=== PATIENT | female | born 1960 | race Caucasian/White ===

== ENCOUNTER → 2016-12-15 | Outpatient (CLI) | payer BC ==
[2016-12-15 13:30] LABS: URINE APPEARANCE CLEAR (CLEAR); URINE BILIRUBIN NEG (NEG); URINE COLOR YELLOW; URINE EPITHELIAL CELL AUTO 0-5 /lpf (0-5); URINE NITRITE NEG (NEG); URINE PH 5.5 (4.5-7.5); URINE SPECIFIC GRAVITY 1.005 (1.000-1.030); UROBILINOGEN NEG (NEG); ZZUR CULT IF INDIC CLEAN CATCH NO
[2016-12-15 13:32] LABS: MANUAL MICROSCOPIC REQUIRED? NO; REVIEW REQ? NO
[2016-12-15 13:47] LABS: ALT/SGPT 18 U/L (12-78); AMYLASE 44 U/L (25-115); BLOOD UREA NITROGEN 17 mg/dl (7-18); BUN/CREATININE RATIO 17.2 (10-20); CALCIUM 9.4 mg/dl (8.5-10.1); CARBON DIOXIDE 27 mmol/L (21-32); CHLORIDE 103 mmol/L (98-107); GLUCOSE 90 mg/dl (70-99); POTASSIUM 4.2 mmol/L (3.5-5.1); SODIUM 136 mmol/L (136-145)
[2016-12-15 13:58] LABS: ALKALINE PHOSPHATASE 78 U/L (45-117); AST/SGOT 14 U/L (15-37)
== END | disposition home or self-care (01) ==
LOC: C.LABMFLN 10:55
PROVIDERS: ATTEND Family Medicine
DX: L74.519 Primary focal hyperhidrosis, unspecified (principal); R30.0 Dysuria; R10.811 Right upper quadrant abdominal tenderness

== ENCOUNTER → 2016-12-29 | Outpatient (CLI) | payer BC | END | disposition home or self-care (01) | LOC: C.LABMFLN 11:01 | PROVIDERS: ATTEND Family Medicine | DX: Z11.59 Encounter for screening for other viral diseases (principal) ==

== ENCOUNTER 2017-09-06 05:34 | Observation (INO) | payer BC ==
[2017-08-24 10:42] VITALS: BMI 26.0
--- NOTE | 2017-08-24 11:24 | PAT Medication Instructions ---
Service Date Aug 24, 2017. Current Home Medication List Black Cohosh (Cimicifuga Racem (Black Cohosh), 1 CAP PO QAM Calcium/Vitamin D (Os-Pepe 500 Plus D), 1 TAB PO QAM Famotidine (Pepcid), 20 MG PO HS Lorazepam (Ativan), 1 MG PO QAM Meclizine Hcl (Meclizine Hcl), 1 TAB PO BID Meloxicam (Mobic), 15 MG PO QAM Multiple Vitamin (Multi Vitamin), 1 TAB PO QAM Oxycodone Hcl (Oxycontin), 20 MG PO Q12 Sertraline (Zoloft), 50 MG PO QAM Tiotropium [place] (Spiriva Handihaler), 1 CAP INH QAM Medication Instructions For Your Scheduled Surgery - Hold the following medications 2 weeks prior to surgery: Black Cohosh (Cimicifuga Racem (Black Cohosh), 1 CAP PO QAM - Contact your surgeon for instructions for : Meloxicam (Mobic), 15 MG PO QAM (OK PER ANESTHESIA) - Hold the following medications the morning of surgery: Multiple Vitamin (Multi Vitamin), 1 TAB PO QAM Calcium/Vitamin D (Os-Pepe 500 Plus D), 1 TAB PO QAM - Take the following medications the morning of surgery with a sip of water: Oxycodone Hcl (Oxycontin), 20 MG PO Q12 (if needed, up to four hours before surgery) Tiotropium [place] (Spiriva Handihaler), 1 CAP INH QAM Sertraline (Zoloft), 50 MG PO QAM Meclizine Hcl (Meclizine Hcl), 1 TAB PO BID Lorazepam (Ativan), 1 MG PO QAM - Take the following medications as scheduled the night before surgery: Meclizine Hcl (Meclizine Hcl), 1 TAB PO BID Oxycodone Hcl (Oxycontin), 20 MG PO Q12 Famotidine (Pepcid), 20 MG PO HS If you have any questions please call us at [phone] or [phone] or [phone]
[2017-08-24 12:06] LABS: BASO % 0.9 %; BASO ABS # 0.05 K/uL (0-0.2); COMPLETE YES; EOS % 2.3 %; HEMATOCRIT 39.8 % (37-47); IG% 0.2 %; LYMPH % 26.8 %; LYMPH ABS # 1.53 K/uL (1.2-3.4); MEAN CELL VOLUME 94.3 fL (80-100); MEAN CORPUSCULAR HEMOGLOBIN 32.2 pg (25-34); MEAN CORPUSCULAR HGB CONC 34.2 g/dl (32-36); MONO % 7.4 %; NEUT % 62.4 %; PLATELET COUNT 168 K/uL (130-400); RED BLOOD COUNT 4.22 M/uL (4.2-5.4); WHITE BLOOD COUNT 5.71 K/uL (4.8-10.8)
[2017-08-24 12:07] LABS: URINE APPEARANCE CLEAR (CLEAR); URINE BILIRUBIN NEG (NEG); URINE COLOR YELLOW; URINE NITRITE NEG (NEG); URINE SPECIFIC GRAVITY 1.017 (1.000-1.030); UROBILINOGEN NEG (NEG)
--- NOTE | 2017-08-24 12:08 | DIAGNOSTIC IMAGING REPORT ---
CHEST PREADMISSION(PA/LAT) CLINICAL HISTORY: PAT preoperative evaluation COMPARISON STUDY: No previous studies for comparison. FINDINGS: The bones soft tissues and hemidiaphragms are normal. The cardiomediastinal silhouette is normal. The lungs are clear. The pulmonary vasculature is normal. IMPRESSION: Negative chest. The above report was generated using voice recognition software. It may contain grammatical, syntax or spelling errors. Electronically signed by: Talat Foote M.D. 08/24/2017 12:07 PM Dictated Date/Time: 08/24/2017 12:07 PM
[2017-08-24 12:09] LABS: MANUAL MICROSCOPIC REQUIRED? NO; REVIEW REQ? NO
[2017-08-24 12:18] LABS: PARTIAL THROMBOPLASTIN RATIO 1.1; PROTHROMBIN TIME (PATIENT) 10.6 SECONDS (9.0-12.0)
[2017-08-24 14:30] LABS: BUN/CREATININE RATIO 22.2 (10-20); CALCIUM 9.5 mg/dl (8.5-10.1); CREATININE 0.92 mg/dl (0.60-1.20); POTASSIUM 4.6 mmol/L (3.5-5.1)
--- NOTE | 2017-09-05 14:57 | HISTORY & PHYSICAL EXAMINATION ---
DATE OF ADMISSION: 09/06/2017 CHIEF COMPLAINT AND HISTORY OF PRESENT ILLNESS: She is being preoped for a posterior lumbar interbody fusion L4-5. Back and lower extremity difficulty, paresthesias months in duration and even years in duration failed to improve with nonoperative measures. She is miserable and was optimistic for some remedy. Through careful evaluation, we determined that she has a spondylolisthesis, lumbar spine L4-5 and she is scheduled for a posterior lumbar interbody fusion. PAST MEDICAL HISTORY: Parkinson's, stomach ulcer, asthma, difficulty with anesthesia. PAST SURGICAL HISTORY: Tonsil and adenoidectomy, tubal ligation, and hysterectomy. ALLERGIES: CODEINE, MORPHINE. CURRENT MEDICATIONS: Meloxicam, Ativan, oxycodone. SOCIAL HISTORY: No alcohol, tobacco. Two grown children. Moderately active, retired, . ADDITIONAL MEDICATIONS: Zoloft, vitamins, calcium. REVIEW OF SYSTEMS: She admits to some fatigue but no fever, sweats. Admits to sinus difficulties. No chest pain, palpitations or arrhythmias. Positive for asthma. No nausea, vomiting, urgency, frequency, depression. She does have numbness and tingling, tremor and dizziness. PHYSICAL EXAMINATION: GENERAL: She is 5 feet 5 inches and 160 pounds, in moderate distress, alert, oriented, mentation normal, appropriately dressed. VITAL SIGNS: Blood pressure 130/80, pulse 80. HEENT: Pupils react to light and accommodation. Ear, nose and throat clear. CARDIAC: Normal S1, S2, no S3. LUNGS: Clear to auscultation. No rales, rhonchi or wheezing. ABDOMEN: Soft, nontender. IMAGING DATA: Images demonstrate spondylolisthesis. ASSESSMENT: Spondylolisthesis and stenosis, L4-5. PLAN: Includes a posterior lumbar interbody fusion, L4-5.
[2017-09-06] VITALS (9 sets, daily range): BP systolic 95–112; BP diastolic 58–72; PULSE 59–87; TEMP 36.4–37; O2SAT 95–100; Ht 165.1 cm; Wt 72.4 kg
[~2017-09-06] VITALS: Ht 165.1 cm; Wt 72.4 kg
[~2017-09-06 05:34] MED LIST: ATV/1 PO; BLAC540C3 PO; CALC500C70 PO; FAMO20TA11 PO; MECL1TAB40 PO; MELO7.5T5 PO; MULT-1027 PO; OXYC20TA50 PO; SERT50TA PO; SPRIN/30 INH
[2017-09-06] MEDS ORDERED: CEFAZOLIN 2000MG IV PUSH 10 ML IV SCH (06:00)
[2017-09-06] MEDS ORDERED: LACTATED RINGER'S 1000ML 1,000 ML IV SCH (06:00)
[2017-09-06] MEDS ORDERED: SCOPOLAMINE 1.5 MG TDSY TD SCH (06:00)
[2017-09-06] MEDS ORDERED: NSS 1000ML IV SCH (06:00)
[2017-09-06] MEDS ORDERED: GLYCOPYRROLATE INJ 0.2 MG/ML VIAL ONE (06:41)
[2017-09-06] MEDS ORDERED: FENTANYL CITRATE INJ 50 MCG/1 ML 2 ML VIAL ONE ×2 (06:41)
[2017-09-06] MEDS ORDERED: MIDAZOLAM HCL 1 MG/ML 2ML VIAL ONE (06:41)
[2017-09-06] MEDS ORDERED: ONDANSETRON INJ 2 MG/ML 2 ML VIAL ONE ×2 (06:41→08:43)
[2017-09-06] MEDS ORDERED: NEOSTIGMINE METHYLSULFATE 5 MG/5 ML SYR ONE (06:41)
[2017-09-06] MEDS ORDERED: LIDOCAINE HCL 2% 2 ML VIAL (20MG/ML) ONE (06:41)
[2017-09-06] MEDS ORDERED: PROPOFOL IV EMULSION 10 MG/ML 20 ML VIAL IV ONE (06:41)
[2017-09-06] MEDS ORDERED: DEXAMETHASONE SOD INJ 4 MG/ML VIAL ONE (06:41)
[2017-09-06] MEDS ORDERED: GELATIN SPONGE SZ 100 ONE ×2 (07:02→09:25)
[2017-09-06] MEDS ORDERED: THROMBIN FOR SOLN 20000 UNIT KIT ONE (07:02)
[2017-09-06] MEDS ORDERED: BACITRACIN 50000 UNIT VIAL ONE (07:03)
[2017-09-06] MEDS ORDERED: VANCOMYCIN HCL 1000MG/20ML VIAL ONE (07:03)
[2017-09-06] MEDS ORDERED: EpINEphrine INJ 1MG/ML AMP 1 MG/ML AMP ONE (07:04)
[2017-09-06] MEDS ORDERED: BUPIVACAINE 0.5 % 5 MG/1 ML MPF 30ML VIAL ONE ×2 (07:04→07:30)
--- NOTE | 2017-09-06 07:13 | History & Physical Bridge Note ---
H&P Re-Evaluation Bridge Note: I have examined the patient, reviewed the History & Physical and in the interval since the performance of the History & Physical I have noted the following changes of clinical significance: No changes noted
[2017-09-06] MEDS ORDERED: ATROPINE SULFATE 0.1 MG/ML 5ML SYR IV PRN (08:15)
[2017-09-06] MEDS ORDERED: ONDANSETRON INJ 2 MG/ML 2 ML VIAL IV PRN ×2 (08:15→10:00)
[2017-09-06] MEDS ORDERED: EpHEDrine SULFATE INJ 50 MG/ML AMP IV PRN (08:15)
[2017-09-06] MEDS ORDERED: PHENYLEPHRINE 100MCG/ML 5ML SYR IV PRN (08:15)
[2017-09-06] MEDS ORDERED: EpHEDrine SULFATE 50MG/5ML SYR ONE (08:34)
[2017-09-06] MEDS ORDERED: ROCURONIUM BROMIDE 10 MG/ML 5 ML VIAL IV ONE ×2 (08:34)
[2017-09-06] MEDS ORDERED: GELATIN SPONGE OP 25X50MM 1 EA SPNG ONE (09:24)
[2017-09-06] MEDS ORDERED: SODIUM CHLORIDE 0.9% 1000ML 1,000 ML IV SCH (09:54)
--- NOTE | 2017-09-06 09:56 | [facility] Post Operative Brief Note ---
Immediate Operative Summary Operative Date Sep 06, 2017. Pre-Operative Diagnosis Spondylolisthesis and stenosis L4-L5 Post-Operative Diagnosis Same Procedure(s) Performed L4-L5 Decompression Posterior Lumbar Interbody Fusion Surgeon Dr Funez Mortgage Loan Underwriter Surgeon(s) Vern Jacobo PA-C Estimated Blood Loss 200ML Findings spondy Specimens NONE Complication(s) None Disposition Recovery Room / PACU
[2017-09-06] MEDS ORDERED: METOCLOPRAMIDE HCL INJ 5 MG/ML 2 ML VIAL IV PRN (10:00)
[2017-09-06] MEDS ORDERED: PROMETHAZINE HCL INJ 12.5 MG in SODIUM CHLORIDE 0.9% 50ML 50 ML IV PRN (10:00)
[2017-09-06] MEDS ORDERED: LORAZEPAM INJ 1 MG in SYRINGE 0.5 ML IV PRN (10:00)
[2017-09-06] MEDS ORDERED: MAGNESIUM HYDROXIDE SUSP 30 ML UDC PO PRN (10:00)
[2017-09-06] MEDS ORDERED: ACETAMINOPHEN 325 MG TAB PO PRN (10:00)
[2017-09-06] MEDS ORDERED: HYDROmorphone HCL 0.5MG/ML 50 ML CASSETTE IV PRN (10:00)
[2017-09-06] MEDS ORDERED: NALOXONE HCL 0.4 MG/1 ML VIAL/CARP IV PRN (10:00)
[2017-09-06] MEDS: HYDROmorphone INJ 2 MG/ML SYR/VIAL IV PRN ×4 (10:05→10:25)
[2017-09-06] MEDS ORDERED: HYDROmorphone HCL 0.5MG/ML 50 ML CASSETTE ONE (10:12)
--- NOTE | 2017-09-06 10:19 | OPERATIVE REPORT ---
DATE OF OPERATION: 09/06/2017 PREOPERATIVE DIAGNOSIS: Spondylolisthesis, stenosis L4-L5 lumbar spine. POSTOPERATIVE DIAGNOSIS: Same. PROCEDURE: Decompression laminectomy L4-L5, posterior lumbar interbody fusion L4-L5. COMPLICATIONS: Zero. IMPLANTS USED: Lvmama. SURGEON: Corey Funez DO. MATERIALS HANDLING COORDINATOR: Vern Jacobo PA-C. ESTIMATED BLOOD LOSS: Less than 200. DESCRIPTION OF PROCEDURE: The patient was taken to the operating room, a general intubated anesthetic provided to the patient, placed prone, scrubbed, prepped and draped sterile. We made a skin incision roughly from 3 to the sacrum dissecting the soft tissue in the same plane, putting in a deep self-retaining retractor. We provided and performed the discectomy and laminectomy portion of procedure getting the nerve roots free, which would mainly be L5 bilaterally and some of L4. I was free with the amount of decompression of the nerve roots. We then safely got pedicle screws into the vertebrae of L4 and L5 bilaterally. Our reduction technique was a complete discectomy at the L4-L5. We then did a posterior lumbar interbody fusion L4-L5. The implants used were by [employer]. We got nice plane anteriorly. We compressed over the interspaces as well. I was pleased with the decompression. We then irrigated thoroughly, bone grafted out over the transverse processes, closed fascia to fascia over vancomycin powder and Hemovac drain, 2-0 in the subcuticular layer, 3-0 nylon on the skin, sterile dressing applied. The patient returned to PACU stable. There were no apparent interoperative complications. I attest to the content of the Intraoperative Record and any orders documented therein. Any exception s are noted below.
[2017-09-06] MEDS ORDERED: NURSING VERBAL MED ORDER ONE (10:30)
--- NOTE | 2017-09-06 10:31 | DIAGNOSTIC IMAGING REPORT ---
SPINE ONE VIEW, ANY LEVEL CLINICAL HISTORY: 56 years-old Female presenting with L4-L5 POSTERIOR LUMBAR INTERBODY FUSION. TECHNIQUE: 1 fluoroscopic spot image(s) obtained as part of an intraoperative procedure. COMPARISON: MR from 05/14/2017. FINDINGS/IMPRESSION: Interval bilateral transpedicular screw and chip fixation of L4-5 with interbody spacer. Grossly normal anatomic alignment on lateral view. Please see surgical report for further details. Fluoroscopy dosage (mGy): Not available. Fluoroscopy time: 4 seconds. Number of fluoroscopic spot images: 1. Electronically signed by: Everette Ortez M.D. 09/06/2017 10:30 AM Dictated Date/Time: 09/06/2017 10:29 AM
[2017-09-06 11:20] LABS: HEMATOCRIT 36.8 % (37-47)
--- NOTE | 2017-09-06 11:43 | Anesthesiology Progress Note ---
Anesthesia Post Op Note Date & Time Sep 06, 2017 at 11:42 Vital Signs Pain Intensity: 3 Vital Signs Past 12 Hours Date Time Temp Pulse Resp B/P (MAP) Pulse Ox O2 Delivery O2 Flow Rate FiO2 09/06/17 11:10 83 18 09/06/17 11:10 83 18 97 09/06/17 11:05 78 12 09/06/17 11:05 77 12 96/62 100 09/06/17 11:01 96/57 09/06/17 11:00 77 14 09/06/17 11:00 79 14 97 09/06/17 10:55 78 10 94/58 99 09/06/17 10:55 77 10 09/06/17 10:51 95/57 09/06/17 10:50 75 10 09/06/17 10:50 74 10 99 09/06/17 10:49 36.5 09/06/17 10:45 81 09/06/17 10:45 81 16 88/53 98 09/06/17 10:40 83 16 106/60 97 09/06/17 10:40 82 16 09/06/17 10:36 90/51 09/06/17 10:35 77 12 98 09/06/17 10:35 77 12 09/06/17 10:30 87 14 105/62 98 09/06/17 10:30 87 09/06/17 10:26 99/68 09/06/17 10:25 92 16 97 09/06/17 10:25 92 16 09/06/17 10:22 Nasal Cannula 4 09/06/17 10:20 79 98/60 99 09/06/17 10:20 79 09/06/17 10:15 86 16 09/06/17 10:15 86 16 94/61 100 09/06/17 10:10 87 9 09/06/17 10:10 87 9 103/64 100 09/06/17 10:05 90 11 103/59 98 09/06/17 10:05 91 11 09/06/17 10:02 97/61 09/06/17 09:55 36.5 85 16 123/64 99 Mask 10 09/06/17 06:09 36.7 59 18 107/58 (74) 99 Room Air Notes Mental Status: alert / awake / arousable, participated in evaluation Pt Amnestic to Procedure: Yes Nausea / Vomiting: adequately controlled Pain: adequately controlled Airway Patency, RR, SpO2: stable & adequate BP & HR: stable & adequate Hydration State: stable & adequate Anesthetic Complications: no major complications apparent
[2017-09-06] MEDS: SODIUM CHLORIDE 0.9% 1000ML 1,000 ML IV SCH (13:35)
[2017-09-06] MEDS: DEXAMETHASONE INJ 10 MG in SYRINGE 0 ML IV SCH ×2 (13:36→21:45)
[2017-09-06] MEDS: CHECK SCOPOLAMINE PATCH PLACEMENT SCH ×2 (15:48→23:27)
[2017-09-06] MEDS: CEFAZOLIN IV 1,000 MG in SYRINGE 0 ML IV SCH ×2 (15:49→23:27)
[2017-09-06] MEDS: MECLIZINE HCL 12.5 MG TAB PO SCH (20:40)
[2017-09-06] MEDS: FAMOTIDINE 20 MG TAB PO SCH (20:40)
[2017-09-07] MEDS: SODIUM CHLORIDE 0.9% 1000ML 1,000 ML IV SCH (02:09)
[2017-09-07 04:07] VITALS: BP 98/60; PULSE 72; TEMP 37.1; O2SAT 92
[2017-09-07] MEDS: DEXAMETHASONE INJ 10 MG in SYRINGE 0 ML IV SCH ×4 (05:59→21:42)
[2017-09-07] MEDS ORDERED: DC PCA SCH (06:00)
[2017-09-07] MEDS ORDERED: BISACODYL 10 MG SUPP PR PRN (06:00)
[2017-09-07] MEDS ORDERED: BISACODYL 5 MG TABEC PO PRN (06:00)
[2017-09-07] MEDS ORDERED: NURSING VERBAL MED ORDER ONE (07:15)
[2017-09-07 07:50] VITALS: BP 94/62; PULSE 68; TEMP 37.1; O2SAT 96
[2017-09-07] MEDS: CEFAZOLIN IV 1,000 MG in SYRINGE 0 ML IV SCH (07:56)
[2017-09-07] MEDS: OXYCODONE/ACETAMINOPHEN 5-325 TAB PO PRN ×4 (07:57→23:12)
[2017-09-07] MEDS: CHECK SCOPOLAMINE PATCH PLACEMENT SCH ×3 (07:58→23:13)
[2017-09-07] MEDS ORDERED: OXYCODONE/ACETAMINOPHEN 5-325 TAB PO PRN (08:00)
[2017-09-07] MEDS ORDERED: HYDROmorphone INJ 1 MG/ML SYR IV PRN (08:00)
[2017-09-07] MEDS ORDERED: HYDROmorphone INJ 2 MG/ML SYR/VIAL IV PRN (08:00)
[2017-09-07] MEDS: TIOTROPIUM BROMIDE 5 PUFF/90 MCG INH INH SCH (08:06)
[2017-09-07] MEDS: MECLIZINE HCL 12.5 MG TAB PO SCH ×2 (08:07→20:18)
[2017-09-07] MEDS: CALCIUM 600MG + VIT D 400 IU TAB PO SCH (08:08)
[2017-09-07] MEDS: MELOXICAM 7.5 MG TAB PO SCH (08:09)
[2017-09-07] MEDS: SERTRALINE HCL 50 MG TAB PO SCH (08:09)
[2017-09-07] MEDS: POLYETHYLENE (MIRALAX) 17 GM PACK PO SCH (08:09)
[2017-09-07] MEDS: MULTIVITAMIN TAB PO SCH (08:12)
--- NOTE | 2017-09-07 08:14 | ORTHOPEDICS PROGRESS NOTE ---
DATE: 09/07/2017 DATE: 09/07/2017 SUBJECTIVE: Moderate complaints of pain, no gross neurological complaints. Alert, oriented. No chest pain, no shortness of breath, no abdominal pain. OBJECTIVE: Vital signs stable including pressure and pulse. Laboratory work pending. IMPRESSION: Status post reconstructive spinal surgery, fusion, posterior lumbar interbody at L4-L5. We will get her up and ambulatory today short distances. She will be discharged home tomorrow.
[2017-09-07] MEDS: LORAZEPAM 1 MG TAB PO PRN ×2 (08:15→23:18)
[2017-09-07 08:51] VITALS: O2SAT 96
[2017-09-07] MEDS ORDERED: BLACK COHOSH PO SCH (09:00)
[2017-09-07 11:47] VITALS: BP 102/62; PULSE 66; TEMP 36.8; O2SAT 95
[2017-09-07] MEDS ORDERED: IV FLUIDS COMPLETED PRN (12:00)
[2017-09-07 15:40] VITALS: BP 90/52; PULSE 59; TEMP 37; O2SAT 95
[2017-09-07] MEDS: FAMOTIDINE 20 MG TAB PO SCH (20:18)
[2017-09-07 23:02] VITALS: BP 102/59; PULSE 58; TEMP 37; O2SAT 98
[2017-09-08] MEDS: OXYCODONE/ACETAMINOPHEN 5-325 TAB PO PRN ×2 (05:21→10:04)
[2017-09-08 06:59] VITALS: BP 101/66; PULSE 58; TEMP 36.6; O2SAT 96
[2017-09-08] MEDS: POLYETHYLENE (MIRALAX) 17 GM PACK PO SCH (07:20)
[2017-09-08] MEDS: CALCIUM 600MG + VIT D 400 IU TAB PO SCH (07:20)
[2017-09-08] MEDS: SERTRALINE HCL 50 MG TAB PO SCH (07:20)
[2017-09-08] MEDS: MECLIZINE HCL 12.5 MG TAB PO SCH (07:20)
[2017-09-08] MEDS: MULTIVITAMIN TAB PO SCH (07:20)
[2017-09-08] MEDS: MELOXICAM 7.5 MG TAB PO SCH (07:20)
[2017-09-08] MEDS: TIOTROPIUM BROMIDE 5 PUFF/90 MCG INH INH SCH (07:20)
[2017-09-08] MEDS: CHECK SCOPOLAMINE PATCH PLACEMENT SCH (07:21)
--- NOTE | 2017-09-08 09:22 | Discharge Instructions ---
Discharge Instructions Date of Service Sep 08, 2017. Admission Reason for Admission: Lumbar Stenosis, Spondylolisthesis Discharge Discharge Diagnosis / Problem: same Discharge Goals Goal(s): Improve function Activity Recommendations Activity Limitations: as noted below Lifting Limitations: no more than 5 pounds Exercise/Sports Limitations: until after follow-up appointment May Resume Sexual Activity: after follow-up appointment Shower/Bathe: keep incision dry be careful. no falls. very short walks . Instructions / Follow-Up Instructions / Follow-Up MEDICATIONS: Please take your prescriptions as instructed at your pre-op appointment. SPECIAL CARE: The following information is intended to answer some of the common questions and concerns regarding your surgery. Each patient is an individual and receives individual counselling throughout the course of treatment, from diagnosis to surgery all the way through recovery. What follows is not an exhaustive list, but should be a useful guide to some of the common questions and concerns patients have regarding their surgeries. These are not provided to keep you from calling us; rather, they give you something accurate and concrete to reference as you recover from your procedure. If you need us, we are available to you. As always, if you are not sure about something, call us at [phone]. MEDICAL EMERGENCIES: For these conditions, call 911 or go to your local hospital-based Emergency Department - not [facility] or equivalent. * Paralysis * Severe chest pain or difficulty breathing * Swelling or redness of either leg Spine procedures can be rather complex and though complications are rare, they do occur. In such cases, effective advice regarding emergency situations cannot always be addressed over the telephone. You may be referred to the emergency department for more effective management of your problem. Activity Limitations: It is important to give your body time to heal, so please limit your activities : * In general, don't do anything that moves your spine too much. You should avoid contact sports, twisting or heavy lifting while you recover. * 5-10 pounds is all you should attempt to lift. * You should not plan on driving for approximately 3 weeks and you should avoid traveling more than 30-45 minutes at a time. Longer trips should be broken down with walking breaks spaced appropriately. * Physical therapy is not usually required. * Walking and good posture practices will help you recover and regain your function. * Avoid straining or sudden changes in position. * In general, the goal is to take it easy and recover. Don't cause any new problems. Just relax. Showers: * Do not take a bath, use a Jacuzzi or hot tub or otherwise submerge your incision. * It is usually safe to take a shower 4-5 days after your surgery. * Your incision does not require any special creams or ointments. * Simply clean it with soap and water, dry and re-dress with a clean bandage afterwards. Incision: * Keep incision clean, dry and protected until your first follow-up appointment. * Some amount of drainage and redness is normal. Any drainage should be fairly clear and not have a foul odor. * If you feel anything is wrong or you have excessive drainage, please call us. * Your stitches and dhiraj will be removed 10-14 days after your surgery. At the time of your first post-op visit. * Neck surgeries are typically closed with a suture underneath the skin. The steri-strips over the incision should be maintained until we see you in the office. Bracing: * You may be provided with a back or neck brace to encourage good posture and prevent injury. It will remind you not to do too much as you heal and will alert others to the fact that you have had a surgery. * Back braces may be removed for showers and when you are resting at home. They must be worn when you are walking around for any period of time or for travel. * For neck surgery, you will likely be provided with two cervical collars. The soft collar ([place] or foam rubber) is worn most commonly throughout the day and while sleeping. The plastic collar (provided at the hospital) is for showering/bathing. * Except while eating, collars should remain in place. More specifically, bracing is provided for a purpose and should be worn. * Please obtain your brace or collars prior to your operation and bring them to the hospital with you on the day of surgery. * You should also bring your collars to your post-op appointment with Dr. Funez. You should always take good care of your body and practice healthy habits, especially following surgery. You should: * Follow your doctor's treatment plan * Sit and stand properly with good posture (ears over shoulders, shoulders over hips) Don't slouch * Learn to lift correctly * Exercise regularly (low-impact aerobic exercise is especially good, but check with your doctor first) * Generally, be up and walking for 5-10 minutes at a time at least 3-4 times per day from the day you get home * Increasing walking to tolerance until you can walk for 20-30 minutes at a time * Attain and maintain a healthy body weight * Eat healthy foods ( a well-balanced, low-fat diet rich in fruits and vegetables) and get enough calcium * Avoid excessive use of alcohol When to call our office - If you notice any of the following: * Increased pain not relieve by pain medicine * Fevers greater then 100 degrees F, chills or flu symptoms * Increased redness around incision * Drainage from the incision that is not clear * Any foul smelling drainage * Swelling or fluid collection beneath the skin Miscellaneous: * In the hospital, you may be given a walker or cane for support while walking. These are temporary needs and are intended to prevent injuries due to falls. You may discontinue them when you feel strong and steady enough on your feet. * Sleep in a comfortable position. We find that many patients find a lounge chair or recliner with several pillows to be beneficial in the early post-operative period. * The support stockings should be used for 7-10 days and may be discontinued when you are back to walking more and conducting usual household activities. No problem is insignificant. We are here to help you and get you well. Contact us at [phone]. Definitions: Foraminotomy: If part of the disc or a bone spur (osteophyte) is pressing on a nerve as it leaves the vertebra (through an exit called the foramen), a foraminotomy may be done. Otomy means "to make an opening." A foraminotomy is making the opening of the foramen larger, so the nerve can exit without being compressed. Laminotomy: Similar to the foraminotomy, a laminotomy makes a larger opening, this time in your bony plate protecting your spinal canal and spinal cord (the lamina). The lamina may be pressing on your nerve, so the surgeon may make more room for the nerves using a laminotomy. Laminectomy: Sometimes, a laminotomy is not sufficient. The surgeon may need to remove all or part of the lamina. This procedure is called a laminectomy. This can often be done at many levels without any harmful effects. Current Hospital Diet Patient's current hospital diet: Regular Diet Discharge Diet Recommended Diet: Regular Diet Procedures Procedures Performed: L4-L5 Decompression Posterior Lumbar Interbody Fusion Pending Studies Studies pending at discharge: no Medical Emergencies . Who to Call and When: Medical Emergencies: If at any time you feel your situation is an emergency, please call 911 immediately. . Non-Emergent Contact Non-Emergency issues call your: Surgeon Call Non-Emergent contact if: you have any medication questions . "Provider Documentation" section prepared by Corey Funez. . VTE Core Measure Inpt VTE Proph given/why not?: Treatment not indicated
[2017-09-08] MEDS ORDERED: OXYC-57 PO (09:24)
--- NOTE | 2017-09-08 09:33 | DISCHARGE SUMMARY ---
SUBJECTIVE: She is alert, oriented. Pain controlled, asked intelligent questions, no mental status alteration, no chest pain, shortness of breath. OBJECTIVE: Vital signs stable. Wound clean and dry. ASSESSMENT: Status post spinal stenosis surgery and spondylolisthesis surgery, doing well short run. DISPOSITION: Includes instructions, precautions, education as to her pathology given to her today and in the office. We will discharge her home later on this morning. She has prescription on her chart. She has a followup appointment. She was given instructions and precautions warnings in the office and here in the hospital.
[2017-09-08 09:41] VITALS: BP 101/66; PULSE 58; TEMP 36.6; O2SAT 96
== END 2017-09-08 10:15 | disposition home or self-care (01) ==
LOC: C.ACU 05:34 → INTOOBSV 10:05 → C.3E 10:05 → ENRESERV 11:03
PROVIDERS: ADMIT Orthopaedic Surgery Orthopaedic Surgery of the Spine; ATTEND Orthopaedic Surgery Orthopaedic Surgery of the Spine
DX: M43.16 Spondylolisthesis, lumbar region (principal); M48.061 Spinal stenosis, lumbar region without neurogenic claudication; J45.909 Unspecified asthma, uncomplicated; J44.9 Chronic obstructive pulmonary disease, unspecified; F32.9 Major depressive disorder, single episode, unspecified; G20 Parkinson's disease; F41.9 Anxiety disorder, unspecified; Z88.5 Allergy status to narcotic agent; Z90.89 Acquired absence of other organs; Z98.51 Tubal ligation status; Z90.710 Acquired absence of both cervix and uterus; Z87.891 Personal history of nicotine dependence

== ENCOUNTER → 2018-03-06 | Outpatient (CLI) | payer BC ==
[~2018-03-06] MED LIST changes: +OXYC-57 PO
[2018-03-06 13:21] LABS: BLOOD UREA NITROGEN 12 mg/dl (7-18); CALCIUM 9.2 mg/dl (8.5-10.1); CARBON DIOXIDE 28 mmol/L (21-32); CREATININE 1.01 mg/dl (0.60-1.20); GLUCOSE 100 mg/dl (70-99); SODIUM 138 mmol/L (136-145)
== END | disposition home or self-care (01) ==
LOC: C.LABMFLN 10:12
PROVIDERS: ATTEND Family Medicine
DX: M51.26 Other intervertebral disc displacement, lumbar region (principal)